=== PATIENT | female | born 1935 | race Two or more races ===

== ENCOUNTER → 2021-07-07 | Outpatient (CLI) | payer MEDICARE, BC, SELFPAY | END | disposition home or self-care (01) | LOC: LABSPEC 17:42 | PROVIDERS: Referring Provider Dermatology; Visit Provider Dermatology | DX: L03.818 Cellulitis of other sites (principal); I87.2 Venous insufficiency (chronic) (peripheral); L97.829 Non-pressure chronic ulcer of other part of left lower leg with unspecified severity | CPT/HCPCS: 87070; 87186; 87205 ==